=== PATIENT | male | born 1985 | race Caucasian/White ===

== ENCOUNTER 2016-10-07 10:33 | Outpatient (RCR) | payer OTHER ==
[~2016-10-07 10:33] MED LIST: ADDAPRIN200 MG PO; LORTAB 5/500 501 TAB PO; NO HOME MEDICATIONS
== END 2017-01-05 ==
LOC: WSOH
DX: S67.190A Crushing injury of right index finger, initial encounter (principal); W22.8XXA Striking against or struck by other objects, initial encounter; Y99.0 Civilian activity done for income or pay

== ENCOUNTER → 2016-11-22 | Outpatient (REF) | LOC: WSOH 13:56 | DX: Z02.4 Encounter for examination for driving license (principal) ==

== ENCOUNTER 2020-07-10 08:40 | Outpatient (RCR) | payer OTHER | END 2020-09-04 | disposition home or self-care (01) | LOC: WSOH | DX: S46.011A Strain of muscle(s) and tendon(s) of the rotator cuff of right shoulder, initial encounter (principal); Z87.891 Personal history of nicotine dependence; Z90.89 Acquired absence of other organs; Y99.0 Civilian activity done for income or pay ==

== ENCOUNTER 2021-11-09 13:52 | Outpatient (RCR) | payer OTHER | END 2021-11-26 | disposition home or self-care (01) | LOC: WSOH | DX: S93.401A Sprain of unspecified ligament of right ankle, initial encounter (principal); E78.00 Pure hypercholesterolemia, unspecified; Z98.890 Other specified postprocedural states; Y99.0 Civilian activity done for income or pay; Z90.89 Acquired absence of other organs ==

== ENCOUNTER 2021-12-13 07:56 | Outpatient (RCR) | payer OTHER | END 2021-12-14 15:49 | LOC: WSOH 07:56 | DX: M25.571 Pain in right ankle and joints of right foot (principal); Y99.0 Civilian activity done for income or pay; E78.00 Pure hypercholesterolemia, unspecified; Z90.89 Acquired absence of other organs ==

== ENCOUNTER → 2022-05-16 | Outpatient (CLI) | payer BC | LOC: COL.RAD 08:05 | DX: M50.222 Other cervical disc displacement at C5-C6 level (principal); M48.02 Spinal stenosis, cervical region ==